=== PATIENT | male | born 1975 | race Caucasian/White ===

== ENCOUNTER 2016-11-20 11:43 | Observation (INO) | payer BC ==
[~2016-11-20] VITALS: Ht 177.8 cm; Wt 70.8 kg
--- NOTE | 2016-11-20 11:57 | PHYS DOC ---
Adult General HPI HPI Patient is a 41 year old M who presents with altered mental status. EMS states that patient's friends called 911 because her friend was not acting right. Friends state that the patient was altered and not acting right however declined any illicit drug use or alcohol. Friends do not present at bedside in the emergency room. EMS states patient has no known medical history except a murmur when he was a child. EMS gave the patient Narcan in which woke him up to GCS of 12. In the emergency room the patient is somnolent but arousable and is confused however will follow commands and has a GCS of 13. Review of Systems Review of Systems Unable to obtain secondary to patient's clinical condition Current Medications Current Medications Current Medications Medications (Trade) Dose Ordered Sig/Magi Start Time Stop Time Status Last Admin Dose Admin Acetaminophen (Tylenol) 650 mg PRN Q4HRS PRN 11/20/16 13:45 11/21/16 13:44 Ondansetron HCl (Zofran) 4 mg PRN Q8HRS PRN 11/20/16 13:45 11/21/16 13:44 Sodium Chloride 1,000 ml @ 125 mls/hr Q8H 11/20/16 13:45 11/21/16 13:44 Allergies Allergies Allergies Coded Allergies Type Severity Reaction Last Updated Verified No Known Drug Allergies 11/20/16 No Physical Exam Physical Exam GEN.: AO x2, confused HEENT: Head is normocephalic, atraumatic NECK: Supple. LUNGS: CTAB. HEART: RRR, S1, S2 present. Peripheral pulses intact ABDOMEN: Soft, nontender. Positive bowel sounds. EXTREMITIES: Without any cyanosis. NEUROLOGIC: Slurred speech, GCS of 13 (E = 3, V=4, and M=6), follows commands, moves all extremities, no focal neurological deficits noted SKIN: No ulcerations Current Patient Data Vital Signs Vital Signs Date Time Temp Pulse Resp B/P (MAP) Pulse Ox O2 Delivery O2 Flow Rate FiO2 11/20/16 11:50 98.7 72 16 126/79 (95) 99 Room Air 98.7 Lab Values Laboratory Tests Test 11/20/16 11:49 11/20/16 11:50 11/20/16 12:04 O2 Saturation 97 % (92-99) Arterial Blood pH 7.41 (7.35-7.45) Arterial Blood pCO2 at Patient Temp 39 mmHg (35-46) Arterial Blood pO2 at Patient Temp 98 mmHg (75-108) Arterial Blood HCO3 24 mmol/L (21-28) Arterial Blood Base Excess -1 mmol/L (-3-3) FiO2 21.0 White Blood Count 8.8 x10^3/uL (4.0-11.0) Red Blood Count 4.62 x10^6/uL (4.30-5.70) Hemoglobin 15.3 g/dL (13.0-17.5) Hematocrit 44.0 % (39.0-53.0) Mean Corpuscular Volume 95 fL (79-100) Mean Corpuscular Hemoglobin 33 pg (25-35) Mean Corpuscular Hemoglobin Concent 35 g/dL (31-37) Red Cell Distribution Width 12.6 % (11.5-14.5) Platelet Count 338 x10^3/uL (140-400) Neutrophils (%) (Auto) 76 % (31-73) H Lymphocytes (%) (Auto) 17 % (24-48) L Monocytes (%) (Auto) 6 % (0-9) Eosinophils (%) (Auto) 1 % (0-3) Basophils (%) (Auto) 1 % (0-3) Neutrophils # (Auto) 6.6 x10^3uL (1.8-7.7) Lymphocytes # (Auto) 1.5 x10^3/uL (1.0-4.8) Monocytes # (Auto) 0.6 x10^3/uL (0.0-1.1) Eosinophils # (Auto) 0.0 x10^3/uL (0.0-0.7) Basophils # (Auto) 0.0 x10^3/uL (0.0-0.2) Sodium Level 142 mmol/L (136-145) Potassium Level 3.8 mmol/L (3.5-5.1) Chloride Level 104 mmol/L (98-107) Carbon Dioxide Level 28 mmol/L (21-32) Anion Gap 10 (6-14) Blood Urea Nitrogen 11 mg/dL (8-26) Creatinine 1.0 mg/dL (0.7-1.3) Estimated GFR (Cockcroft-Gault) 82.8 BUN/Creatinine Ratio 11 (6-20) Glucose Level 107 mg/dL (70-99) H Lactic Acid Level 1.0 mmol/L (0.4-2.0) Calcium Level 9.2 mg/dL (8.5-10.1) Total Bilirubin 0.4 mg/dL (0.2-1.0) Aspartate Amino Transferase (AST) 18 U/L (15-37) Alanine Aminotransferase (ALT) 29 U/L (16-63) Alkaline Phosphatase 63 U/L (46-116) Troponin I Quantitative < 0.017 ng/mL (0.000-0.055) Total Protein 6.4 g/dL (6.4-8.2) Albumin 4.0 g/dL (3.4-5.0) Albumin/Globulin Ratio 1.7 (1.0-1.7) Ethyl Alcohol Level < 10 mg/dL (0-10) Urine Collection Type Unknown Urine Color Yellow Urine Clarity Clear Urine pH 6.0 Urine Specific [place] 1.025 Urine Protein Negative mg/dL (NEG-TRACE) Urine Glucose (UA) Negative mg/dL (NEG) Urine Ketones (Stick) Trace mg/dL (NEG) Urine Blood Negative (NEG) Urine Nitrite Negative (NEG) Urine Bilirubin Small (NEG) Urine Urobilinogen Dipstick 1.0 mg/dL (0.2 mg/dL) Urine Leukocyte Esterase Negative (NEG) Urine RBC 6-10 /HPF (0-2) Urine WBC 0 /HPF (0-4) Urine Bacteria 0 /HPF (0-FEW) Urine Mucus Marked /LPF Urine Opiates Screen Neg (NEG) Urine Methadone Screen Neg (NEG) Urine Barbiturates Neg (NEG) Urine Phencyclidine Screen Neg (NEG) Urine Amphetamine/Methamphetamine Neg (NEG) Urine Benzodiazepines Screen Neg (NEG) Urine Cocaine Screen Neg (NEG) Urine Cannabinoids Screen Neg (NEG) Urine Ethyl Alcohol Neg (NEG) Laboratory Tests 11/20/16 11:50 Laboratory Tests 11/20/16 11:50 EKG EKG 1152: EKG shows normal sinus rhythm rate of 65 no STEMI [] Radiology/Procedures Radiology/Procedures [] Course & Med Decision Making Course & Med Decision Making Pertinent Labs and Imaging studies reviewed. (See chart for details) ED course: Patient was seen and examined in the emergency room an overdose protocol was ordered along with a CT scan of the head and C-spine 1155: Patient is becoming much more alert and states that he is a history of seizures and could've had a seizure this morning 1305: On reexamination the patient is more alert however still altered and cannot get up and walk, girlfriend's at bedside stating that he is not back to his neuro baseline. 1345: Discussed CC/HP/PMH with Dr. Nicholson and recommends admit and the MRI of the brain with contrast [] Dragon Disclaimer Dragon Disclaimer This electronic medical record was generated, in whole or in part, using a voice recognition dictation system. Departure Departure Impression: Primary Impression: Altered mental status Disposition: ADMITTED INPATIENT Admitting Physician: Other (Dr. Nicholson) Condition: STABLE MIYA KWONG DO Nov 20, 2016 11:57
--- NOTE | 2016-11-20 11:59 | EKG ---
[facility] [address] [place] [address] Test Date: 2016-11-20 Test Time: 11:47:20 Pat Name: SOFIA CHANCE Department: Room: Gender: M Medical Assisting Program Director: : 1975 Requested By: MIYA KWONG Order Number: [id number] Reading MD: Chriss Abreu Measurements Intervals Cameron Rate: 65 P: 51 NJ: 130 QRS: 34 QRSD: 90 T: 43 QT: 368 QTc: 383 Interpretive Statements SINUS RHYTHM INCOMPLETE RBBB Electronically Signed On 11-25-2016 8:44:45 CDT by Chriss Abreu
[2016-11-20] MEDS ORDERED: IV NORMAL SALINE 1000ML BAG 1,000 ML IV ONE (12:00)
[2016-11-20 12:01] LABS: BASO % 1 % (0-3); EOS % 1 % (0-3); HEMOGLOBIN 15.3 g/dL (13.0-17.5); LYMPH # 1.5 x10^3/uL (1.0-4.8); LYMPH % 17 % (24-48); MEAN CORPUSCULAR HEMOGLOBIN 33 pg (25-35); MEAN CORPUSCULAR HGB CONC 35 g/dL (31-37); MEAN CORPUSCULAR VOLUME 95 fL (79-100); MONO % 6 % (0-9); NEUT % 76 % (31-73); PLATELET COUNT 338 x10^3/uL (140-400); RED BLOOD COUNT 4.62 x10^6/uL (4.30-5.70); RED CELL DISTRIBUTION WIDTH 12.6 % (11.5-14.5); WHITE BLOOD COUNT 8.8 x10^3/uL (4.0-11.0)
--- NOTE | 2016-11-20 12:04 | RAD ---
AP portable chest radiograph 11/20/2016 Clinical History: Unexplained altered mental status. An AP portable erect digital radiograph of the chest was obtained. No previous studies are available for comparison. The cardiac silhouette is normal in size. The thoracic aorta is mildly tortuous. No acute pulmonary infiltrate is seen. No pleural effusion or pneumothorax is seen. Minimal S shaped curvature of the thoracolumbar spine is noted. Impression: No acute abnormality is seen.
[2016-11-20 12:15] LABS: BILIRUBIN,URINE SMALL (NEG); GLUCOSE,URINE NEGATIVE (NEG); NITRITE,URINE NEGATIVE (NEG); PROTEIN,URINE NEGATIVE (NEG-TRACE)
[2016-11-20 12:15] LABS: CALCIUM 9.2 mg/dL (8.5-10.1); GFR 82.8; POTASSIUM 3.8 mmol/L (3.5-5.1)
[2016-11-20 12:18] LABS: BARBITURATES NEG (NEG); BENZODIAZEPINES NEG (NEG); CANNABINOIDS NEG (NEG); COCAINE NEG (NEG); METHADONE NEG (NEG); OPIATES NEG (NEG); PHENCYCLIDINE NEG (NEG)
[2016-11-20 12:19] LABS: ALBUMIN/GLOBULIN RATIO 1.7 (1.0-1.7); TOTAL BILIRUBIN 0.4 mg/dL (0.2-1.0); TOTAL PROTEIN 6.4 g/dL (6.4-8.2)
[2016-11-20 12:25] LABS: BACTERIA,URINE 0 /HPF (0-FEW); WBC,URINE 0 /HPF (0-4)
--- NOTE | 2016-11-20 12:38 | RAD ---
CT scan of the head without contrast 11/20/2016 Clinical history: Overdose. Altered mental status. Technique: Unenhanced, contiguous, 5 mm axial sections were obtained through the head. One or more of the following individualized dose reduction techniques were utilized for this study: 1. Automated exposure control. 2. Adjustment of the mA and/or kV according to patient size. 3. Use of iterative reconstruction technique. Findings: The ventricles and sulci are within normal limits in size and configuration. No area of abnormal attenuation is involving the brain parenchyma. No extra-axial fluid collection is seen. No skull fracture is noted. Impression: Negative study. CT scan of the cervical spine without contrast 11/20/2016 Clinical history: Possible neck injury. Unresponsive. Technique: Unenhanced, contiguous, 0.625 mm axial sections were obtained through the cervical spine. 3 mm reconstructed sagittal, axial, and and coronal images were obtained. One or more of the following individualized dose reduction techniques were utilized for this study: 1. Automated exposure control. 2. Adjustment of the mA and/or kV according to patient size. 3. Use of iterative reconstruction technique. Findings: Sagittal and coronal reconstructed images demonstrate mild lateral curvature of the cervical spine is seen convex to the right there is straightening of the normal cervical lordosis. No fracture or subluxation of the cervical vertebra is seen. Relatively mild degenerative changes are seen involving the uncovertebral and facet joints scattered throughout the cervical disc spaces. Impression: No fracture or subluxation of the cervical vertebra is seen.
[2016-11-20 13:02] LABS: HCO3 ABG 24 mmol/L (21-28); PCO2 ABG 39 mmHg (35-46); PO2 ABG 98 mmHg (75-108); SAT O2 ABG 97 % (92-99)
[2016-11-20 13:06] LABS: PH ABG 7.41 (7.35-7.45)
[2016-11-20] MEDS ORDERED: ACETAMINOPHEN 325 MG TABLET. PO PRN (13:45)
[2016-11-20] MEDS ORDERED: IV NORMAL SALINE 1000ML BAG 1,000 ML IV SCH (13:45)
[2016-11-20] MEDS ORDERED: ONDANSETRON PF 4 MG/2 ML VIAL. IV PRN (13:45)
[2016-11-20] MEDS ORDERED: GADOBUTROL 7.5 MMOL/7.5 ML VIAL IV ONE (14:30)
--- NOTE | 2016-11-20 15:12 | RAD ---
MRI Brain with and without contrast History: Altered mental status, lethargy, possible drug overdose, history of seizures Technique: Multiplanar, multi sequential pre and postcontrast MR imaging was performed of the brain. Contrast: 7.5 cc Gadavist Comparison: None Findings: There is motion degradation. There is no evidence of recent infarct or cytotoxic edema. The ventricles, sulci, and cisterns are within normal limits in size and configuration. There is no significant midline shift, intraaxial mass effect, or focal abnormal extra-axial fluid collection. There is a small focus of nonenhancing T2 and FLAIR hyperintense signal of the left frontal white matter. There is no nodular parenchymal or leptomeningeal enhancement. There is preservation of the major intracranial flow-voids at the skull base. The cerebellar tonsils are normal in location. There is no significant abnormality of the pineal gland or pituitary gland. There is very minimal patchy bilateral ethmoid air cell mucosal thickening. The mastoid air cells are aerated. There is preserved marrow signal of the clivus. Impression: 1. Other than a small focus of nonenhancing likely nonspecific gliosis of the left frontal white matter, there is no significant intracranial abnormality. Electronically signed by: Abundio Seymour MD (11/20/2016 3:09 PM) [id number]
[2016-11-20 16:00] VITALS: BP 114/77
[2016-11-20] MEDS ORDERED: PSEU120T9 PO (16:49)
[2016-11-20 19:38] VITALS: BP 94/55
--- NOTE | 2016-11-20 21:00 | HP ---
ADMIT DATE: 11/20/2016 CHIEF COMPLAINT: Altered mental status. HISTORY OF PRESENT ILLNESS: The patient is a 41-year-old gentleman who presented to the Emergency Room via EMS with altered mental status. He relates that he was at home trying to fill out an application for a second job when he started feeling ill, having some midsternal chest pain, headaches, blurry vision and decided to lie down on his bed. He relates that when he tried to sit up and go back to his previous activities, he was unable to raise from the bed. He called his girlfriend who notified EMS. He does not remember further events. He was in and out of consciousness in the ambulance. Remained completely unable to move, but could hear people talking around him. Just could not answer properly. In the Emergency Room, he was found somnolent, but arousable with confusion, but following commands. On later interview, the patient relates that he spontaneously recovered all his faculties and he attributes this to stress with his ex-, current girlfriend as well as work situation. He has been seeing a psychologist once a week for a diagnosis of stress, anxiety, question PTSD. He is also signed up for anger management classes, has not started yet. PAST MEDICAL HISTORY: None. SOCIAL HISTORY: Currently living with his girlfriend and his 1-year-old son with her. Two of his other 3 sons are living with him as well. He denies any tobacco use or alcohol, denies any drug use. FAMILY HISTORY: Positive for CVA and CAD in close family members, cervical cancer in his sister. ALLERGIES: No known drug allergies. MEDICATIONS: MAR reconciled with home medications. REVIEW OF SYSTEMS: Positive as per HPI. Currently, he has no persistent physical symptoms, still feels stressed, but is tired. PHYSICAL EXAMINATION: VITAL SIGNS: Show a blood pressure of 94/55, heart rate of 67, respiratory rate at 18, he is afebrile. Of note, blood pressure previously in the 110s/60s. GENERAL: This is a well-nourished, well-developed 41-year-old gentleman, alert and oriented, in no acute distress. LUNGS: Clear. HEART: Has regular rate and rhythm. ABDOMEN: Has positive bowel sounds, soft, nontender. EXTREMITIES: Show no edema. NEUROLOGIC: He appears grossly intact. LABORATORY DATA: CBC with a WBC of 8.8, hemoglobin 15.3, platelets of 368. Chemistries with a BUN and creatinine of 11 and 1.0. Electrolytes within normal limits. LFTs normal. Toxicology completely negative. UA negative as well. RADIOGRAPHIC STUDIES: CT of the head and cervical spine shows a negative study. MRI of the brain shows "other than a small focus of nonenhancing likely nonspecific gliosis of the left frontal white matter, there is no significant intracranial abnormality." ASSESSMENT AND PLAN: The patient is a 41-year-old gentleman who presented with mental status changes and physical signs and symptoms suspicious for stress induced conversion disorder. All symptoms have now resolved. We will continue to monitor for the time being. His blood pressure is currently somewhat soft. Labs have been completely within normal limits. Discussed his stress issues with him. I advised him that seeing his psychologist SOPHIA and arranging for psychiatric followup for medication help may be of benefit. He may be able to arrange appointment with counselor for tomorrow. PATRICE SAAVEDRA MD DR: LAURITA/nts JOB#: [id number] / [id number] ABRIL
[2016-11-20 23:21] VITALS: BP 108/66
--- NOTE | 2016-11-20 23:37 | ACF ---
Admission Forms Criteria MENTAL STATUS CHANGE Clinical Indications for Inpatient Care (Place 'X' for any and all applicable criteria): Ongoing inpatient care may be needed for 1 or more of the following(1)(2)(3)(5)( 6): [X]I. Suspected serious etiology (eg, medical disorder, HEAD OF D[employer] ADVERTISING [employer] INTEGRATION event) of altered mental status [ ]II. Danger to self or others not manageable at lower level of care [ ]III. Grave disability (eg, inability to perform self care necessary at lower level of care) [ ]IV. Agitation or inappropriate behavior interfering with care for primary condition (eg, attempting to discontinue lines or drains prematurely, unable to cooperate with respiratory care) [ ]V. Delirium [A] [D][E] as described by 1 or more of the following(26): [ ]a) Delirium due to alcohol or sedative [F] withdrawal [ ]b) Delirium of uncertain etiology that has not responded to appropriate empiric treatment [ ]c) Delirium that prevents performance of a life-sustaining function (eg, feeding or hydrating oneself) [ ]. General contraindications and/or Inappropriate clinical situations for Observational Care in patients with Mental Status Change, when ANY ONE of the following is required: [ ]a) Prediction of prolongation of LOS based on ANY ONE of the following may be considered as a contraindication for observational care 2, 3, 4, 5, 6, 7, 8, 9, 10, 11 [ ]i) Age > 65 yrs. [ ]ii) Patient arriving by ambulance [ ]iii) Patient with high acuity [ ]iv) Patient requiring vital sign monitoring [ ]v) Patient on IV medication [ ]b) Systolic blood pressures greater than or equal to 180mmHg 3, 12 [ ]c) Patient with altered mental status including delirium and other alteration of consciousness, (3) [ ]d) Patient whose discharge disposition will be to a shelter home or rehabilitation home should not be managed in Emergency Department Observation Unit. CMS rule requires 3 days hospital stay before such placement.3,13 [ ]e) Patient with failure to thrive due to broad array of etiologies 3,16,17 [ ]f) Inability to ambulate 3,14 Extended stay beyond goal length of stay for the primary condition may be needed until ALL of the following are present(3)(5): [ ]a) Underlying medical etiology of mental status change is absent, or has been established and adequately treated [ ]b) Danger to self or others is absent or manageable at lower level of care. [ ]c) Behavior crisis management, including physical or chemical restraints, is not required or available at lower level of car [ ]d) Substance or alcohol withdrawal is absent or manageable at lower level of care. [ ]e) Behavioral symptoms (eg, agitation, somnolence, inappropriate behavior) are absent, or are manageable at lower level of care. The original [facility] content created by [facility] has been revised. The portions of the content which have been revised are identified through the use of italic text or in bold, and [facility] has neither reviewed nor approved the modified material. All other unmodified content is copyright [facility]. Please see references footnoted in the original [facility] edition 2016 Admission Criteria Met?: Yes MAJO URIBE Nov 20, 2016 23:37
[2016-11-21 03:11] VITALS: BP 98/51
[2016-11-21 07:00] VITALS: BP 106/64
[2016-11-21 08:19] LABS: BASO % 0 % (0-3); EOS % 2 % (0-3); HEMOGLOBIN 15.3 g/dL (13.0-17.5); LYMPH # 1.9 x10^3/uL (1.0-4.8); LYMPH % 26 % (24-48); MEAN CORPUSCULAR HEMOGLOBIN 33 pg (25-35); MEAN CORPUSCULAR HGB CONC 35 g/dL (31-37); MEAN CORPUSCULAR VOLUME 95 fL (79-100); MONO % 7 % (0-9); NEUT % 66 % (31-73); PLATELET COUNT 290 x10^3/uL (140-400); RED BLOOD COUNT 4.61 x10^6/uL (4.30-5.70); RED CELL DISTRIBUTION WIDTH 12.6 % (11.5-14.5); WHITE BLOOD COUNT 7.5 x10^3/uL (4.0-11.0)
[2016-11-21 08:31] LABS: CALCIUM 8.6 mg/dL (8.5-10.1); CREATININE 0.9 mg/dL (0.7-1.3); GFR 93.5; POTASSIUM 4.2 mmol/L (3.5-5.1)
[2016-11-21 11:00] VITALS: BP 107/79
[2016-11-21 11:13] LABS: CKMB MASS 0.9 ng/mL (0.0-3.6)
[2016-11-21] MEDS ORDERED: ACETAMINOPHEN 325 MG TABLET. PO PRN (12:15)
[2016-11-21] MEDS ORDERED: ONDANSETRON PF 4 MG/2 ML VIAL. IV PRN (12:15)
[2016-11-21] MEDS ORDERED: hydrALAZINE 20 MG/ML VIAL. IVP PRN (12:15)
[2016-11-21] MEDS ORDERED: MORPHINE SULFATE 2 MG/ML DISP.SYRIN. IV PRN (12:15)
[2016-11-21] MEDS ORDERED: traMADol 50 MG TABLET PO PRN (12:15)
[2016-11-21] MEDS ORDERED: DOCUSATE SODIUM 100 MG CAPSULE. PO PRN (12:15)
--- NOTE | 2016-11-21 12:16 | PDOC3 ---
Discharge Summary [facility] Date of Admission: Nov 20, 2016 Discharge Date: Nov 21, 2016 Admitting Diagnosis AMS, 2/2 with anxiety likely chest pain, atypical, 2/2 anxiety likely anxiety Problems: Final Diagnosis Brief Hospital Course Mr. June is a 41 old,no PMH, takes sudafed sometimes, fu with some psych counselor sometimes, was sent by EMS for AMS. He has not been eating or sleeping well in the past few weeks, lots of stress from his life going on recently. He said he suddenly felt severe left side chest pain yesterday when sitting, CE, ekg ALL neg. drug tox neg, denies taking drugs too. He got echo and stress test 1-2 years ago as per pt, neg. Pt has no confusiON today, 1/10 chest pain now. will do echo today, if neg, dc home. ask him to fu with a psychiatrist. dc time 35min. GENERAL: calm, aaox3 LUNGS: Clear. HEART: Has regular rate and rhythm. ABDOMEN: Has positive bowel sounds, soft, nontender. EXTREMITIES: Show no edema. NEUROLOGIC: He appears grossly intact. Problems: Disposition home CONDITION AT DISCHARGE: Improved Diet regular Scheduled Pseudoephedrine Hcl (Sudafed 12-Hour), 1 TAB PO DAILY, (Reported) Follow Up pcp in 2 weeks CHON SYED MD Nov 21, 2016 12:16
[2016-11-21 15:00] VITALS: BP 111/69
--- NOTE | 2016-11-21 18:15 | CARD ---
APPROVED REPORT EXAM: Two-dimensional and M-mode echocardiogram with Doppler and color Doppler. Other Information Quality : Good INDICATION Chest Pain 2D DIMENSIONS RVDd2.5 (2.9-3.5cm)Left Atrium(2D)3.0 (1.6-4.0cm) IVSd0.8 (0.7-1.1cm)Aortic Root(2D)2.9 (2.0-3.7cm) LVDd4.9 (3.9-5.9cm)LVOT Diameter2.1 (1.8-2.4cm) PWd0.8 (0.7-1.1cm)LVDs3.1 (2.5-4.0cm) FS (%) 36.2 %SV72.5 ml LVEF(%)65.8 (>50%) Aortic Valve AoV Peak Kranthi.135.9cm/sAoV VTI27.1cm AO Peak GR.7.4mmHgLVOT Peak Kranthi.135.3cm/s AO Mean GR.4mmHgAVA (VMAX)3.30cm2 ISABEL (VTI)3.20cm2 Mitral Valve MV E Kevqewyr55.7cm/sMV DECEL PUMJ672xa MV A Zfgycwrj94.8cm/sE/A Ratio1.8 Tricuspid Valve TR P. Ygyihwrv439zw/sRAP UATEICHO0tbRm TR Peak Gr.73rwFsQCTO44hnIe Pulmonary Vein S1 Dpixviud71.1cm/sD2 Xljljxdm75.1cm/s LEFT VENTRICLE The left ventricle is normal size. There is normal left ventricular wall thickness. The left ventricu lar systolic function is normal and the ejection fraction is within normal range. EF 55% Septal motio n consistent with conduction abnormality, otherwise grossly normal wall motion. The left ventricular diastolic function and filling is normal for age. RIGHT VENTRICLE The right ventricle is normal size. The right ventricular systolic function is normal. ATRIA The left atrium size is normal. The right atrium size is normal. The interatrial septum is intact wit h no evidence for an atrial septal defect or patent foramen ovale as noted on 2-D or Doppler imaging. AORTIC VALVE The aortic valve is normal in structure and function. Doppler and Color Flow revealed no significant aortic regurgitation. There is no significant aortic valvular stenosis. MITRAL VALVE The mitral valve is normal in structure and function. There is no evidence of mitral valve prolapse. There is no mitral valve stenosis. Doppler and Color-flow revealed trace mitral regurgitation. TRICUSPID VALVE The tricuspid valve is normal in structure and function. Doppler and Color Flow revealed trace tricus pid regurgitation. The PA pressure was estimated at 30 mmHg. There is no tricuspid valve stenosis. PULMONIC VALVE The pulmonary valve is normal in structure and function. Doppler and Color Flow revealed no pulmonic valvular regurgitation. There is no pulmonic valvular stenosis. GREAT VESSELS The aortic root is normal in size. The ascending aorta is normal in size. The IVC is normal in size a nd collapses >50% with inspiration. PERICARDIAL EFFUSION There is no evidence of significant pericardial effusion. Critical Notification Critical Value: No <Conclusion> The left ventricular systolic function is normal and the ejection fraction is within normal range. EF 55% Septal motion consistent with conduction abnormality, otherwise grossly normal wall motion.
== END 2016-11-21 19:21 | disposition home or self-care (01) ==
LOC: ER 11:43 → 6 SOUTH 13:17
PROVIDERS: ADMIT Internal Medicine Hematology & Oncology; ATTEND Internal Medicine Hematology & Oncology
DX: R41.82 Altered mental status, unspecified (principal); R07.2 Precordial pain; F41.9 Anxiety disorder, unspecified; Z82.3 Family history of stroke; Z82.49 Family history of ischemic heart disease and other diseases of the circulatory system; Z80.49 Family history of malignant neoplasm of other genital organs
CPT/HCPCS: 36415; 36600; 70450; 70553; 71010; 72125; 80048; 80053; 80307; 81001; 82553; 82805; 83605; 84484; 85025; 87040; 93005; 93306; 96360; 96361; 99285; A9585; G0378; G0480; J7030; G0379; G0479